=== PATIENT | male | born 1935 | race Caucasian/White ===

== ENCOUNTER → 2016-10-26 | Outpatient (CLI) | payer MEDICARE, BC ==
--- NOTE | 2016-10-26 11:24 | RADRPT ---
PROCEDURE: XR right knee. CLINICAL INDICATION: Knee pain TECHNIQUE: AP weightbearing, lateral weightbearing and sunrise views are available for review. COMPARISON: 10/28/2014 FINDINGS: There is moderate osteoarthrosis involving the medial tibial femoral compartment and mild osteoarthr osis involving the patellofemoral compartment. This is associated with joint space narrowing, subcho ndral sclerosis and osteophytosis. There is otherwise normal mineralization, architecture and alignment. No fractures are identified. No osseous lesions are identified. The soft tissues are unremarkable. IMPRESSION: Moderate osteoarthrosis involving the medial tibial femoral compartment and mild osteoarthrosis invo lving the patellofemoral compartment. RPTAT: HGDB .Ab Nice MD, MD Date Time Electronically viewed and signed by .Ab Nice MD, on 10/26/2016 11:24 .B/
--- NOTE | 2016-10-26 11:26 | RADRPT ---
PROCEDURE: XR pelvis/right hip. CLINICAL INDICATION: Hip pain TECHNIQUE: AP pelvis/lateral right hip view performed COMPARISON: No prior studies are available for comparison. FINDINGS: There is moderate to severe right hip osteoarthrosis and moderate left hip osteoarthrosis. This is a ssociated with joint space narrowing, subchondral sclerosis and osteophytosis. There is normal mine ralization. No fractures or osseous lesions are identified. The soft tissues are unremarkable. IMPRESSION: Moderate to severe right hip osteoarthrosis. Moderate left hip osteoarthrosis RPTAT: HGDB .Ab Nice MD, Date Time Electronically viewed and signed by .Ab Nice MD, on 10/26/2016 11:26 .B/
--- NOTE | 2016-10-27 03:54 | HKNOTE ---
DATE OF SERVICE: 10/26/2016 MAIN COMPLAINT: 1. Pain in the right hip. 2. Pain in the right knee. HISTORY OF MAIN COMPLAINT: The patient is an 81-year-old male who complains of pain in his right hi p and knee, all of which seem to have been present for about 3 months. He is quite well known to me . He has been diagnosed as having osteoarthritis of the right knee, and I have given him cortisone injections. The patient's sister has had bilateral hip and bilateral knee replacements all performe d by me. The patient saw his well testing operator, Dr. Gudino, yesterday. He was given a prescription for m eloxicam. He took 1 tablet last night, so he has not had sufficient time to evaluate its effectiven ess. The patient saw Dr. Martinez a month ago. Dr. Martinez informed him that all of his symptoms are coming from his right knee and that the right hip was normal, and Dr. Martienz gave him a cortisone injection into the right knee. This has not given him much relief. The patient's right hip pain i s localized to the groin and radiates down the anterior thigh. The patient's pain is aggravated by walking, weightbearing, and stair climbing. He does get rest pain and night pain. He had been taki ng Tylenol for the pain as well as Aleve. He does not have any symptoms of lower back disorder. He has no numbness or tingling in his legs. On a level surface, he cannot walk more than 10 to 14 pac es at a time without stopping. He limps all the time. He uses a cane most of the time (from his si ster). He has difficulty putting on his shoes and socks. PAST ORTHOPEDIC HISTORY: PREVIOUS ORTHOPEDIC OPERATIONS: None. PRIOR CORTISONE INTAKE: Dr. Martinez gave him a cortisone injection into the right knee last week. In reviewing my notes, I note that he has also been given cortisone injections into he right knee by me in the past. ALCOHOL INTAKE: "One 6-pack per month." OTHER JOINT PROBLEMS: None. BLOOD TESTS FOR ARTHRITIS: None. PRIOR INJURIES TO HIPS OR KNEES: None. WORK STATUS: The patient has had many careers. 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 PAST MEDICAL HISTORY: 1. Diabetes. 2. Hypertension. 3. Morbid obesity. 4. Depression. 5. Heart irregularity. 6. Prostatism. PAST SURGICAL HISTORY: 1. Gallbladder removed 5 years ago. 2. Heart valve surgery by Dr. Daniel 7 years ago. 3. Shoulder surgery 5 years ago. 4. Appendectomy as a child. ALLERGIES: NONE. MEDICATIONS: 1. Flomax 0.4 mg daily. 2. Alpha-Lipoic acid 300 mg daily. 3. Januvia 100 mg daily. 4. Metformin 500 mg daily. 5. Atorvastatin 20 mg daily. 6. Metoprolol 25 mg daily. 7. Calcium citrate 600 mg a day. 8. Mag Ox 400 mg twice a day. 9. Testosterone shot every 2 weeks. 10. Folic acid 1 mg daily. 11. Aspirin, low dose, 81 mg daily. 12. Allopurinol 300 mg daily. 13. Multivitamins. 14. Ferrous sulfate. 15. Clopidogrel to prevent strokes. FAMILY HISTORY: Noncontributory. SYSTEMS REVIEW: Prone to excess urination, difficulty with urination, excess night urination (curre ntly on Flomax), tingling sensations in his hands, otherwise entirely negative. HABITS: The patient does not smoke. He rarely drinks alcoholic beverages. MANAGEMENT LEAD: Dr. Tavares Gudino [address] [place] [address] PHYSICAL EXAMINATION GENERAL: The patient is a morbidly obese 81-year-old male. He moves around with a great deal of di fficulty on account of his weight and of his pain. He has a pink cane (! from his sister.) VITAL SIGNS: Height 5 feet 6 inches, weight 280 pounds. Blood pressure 155/70, temperature 98.1. GAIT: The patient's gait is markedly antalgic. It is very difficult for him to get onto the examin ation couch. RIGHT HIP: Flexion 120 degrees, external rotation contracture 25 degrees, internal rotation -25 deg [place], abduction 25, adduction 0 degrees. The patient gets marked pain in the right groin at all willard its of motion. No tenderness anywhere around the right hip. LEFT HIP: A full range of motion without pain. No tenderness anywhere around the hip. RIGHT KNEE: The right knee shows normal alignment. Active and passive extension is 0 degrees. Activ e and passive flexion is 135 degrees. The medial and lateral collateral ligaments and cruciate ligam ents are intact. Bess test is negative. There is no tenderness, scarring, or cysts. The patella t racks normally. There is no tenderness on the articular surface of the patella or in the patellar gr oove. The Q angle is normal. There is 4+ crepitus in the knee, none in the patella, 1+ effusion. LEFT KNEE: The left knee shows normal alignment. Active and passive extension is 0 degrees. Active and passive flexion is 135 degrees. The medial and lateral collateral ligaments and cruciate ligamen ts are intact. Bess test is negative. There is no effusion, tenderness, scarring, crepitus, or cy sts. The patella tracks normally. There is no tenderness on the articular surface of the patella or in the patellar groove. The Q angle is normal. IMAGING: Plain x-rays of the pelvis and right hip obtained today [2 views] show severe narrowing of the right hip joint space with almost complete loss of the joint space and dimu-mt-xsym contact, os teophyte formation, subchondral sclerosis, and intraosseous cyst formation. Imaging of the left hip obtained today was reviewed. These show a normal hip. CAT scan of the right hip obtained on 10/24/2016 at the [facility] is reported by Dr. Sukh cabrera as showing "mild to moderate hip osteoarthritis. No fracture. No avascular necrosis. Ossificati on in the right hip abductor muscles. 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 Extremely severe degenerative osteoarthritis of the right hip 2. Degenerative osteoarthritis of the right knee. 3. Morbid obesity. 4. Diabetes. 5. Hypertension. 6. Anxiety and depression. 7. Probable gout. MANAGEMENT: The patient is advised that he most certainly will need to have a right hip replacement sometime in the future. Given his BMI, he is going to have a hard time finding a surgeon who will be prepared to take him on as a surgical candidate. He was advised that he will need to lose at least 80 pounds before we could consider proceeding with surgery. The operation of total hip replacement is discussed with him and his sister in a great deal of nevaeh rangel FINAL DIAGNOSES: 1. Extremely severe degenerative osteoarthritis of the right hip 2. Degenerative osteoarthritis of the right knee. 3. Morbid obesity. 4. Diabetes. 5. Hypertension. 6. Anxiety and depression. 7. Probable gout. MANAGEMENT: 1. The patient will see Dr. Gudino to discuss the possibility of a gastric bypass type operation. 2. Under sterile conditions, given injection of 2 mL of Kenalog and 6 mL of 2% lidocaine into his r ight hip joint. This gave him immediate and complete relief of his right hip pain. 3. He was advised to discontinue the Meloxicam for a week or 2 until the effects of the cortisone c an wear off. 4. We can nurse him along with cortisone injections as needed, no more frequently than every 3 amanuel hs, until such time as he can bring his weight down to manage manageable levels. He is a very high risk patient given his weight, his age, and his medical conditions. DISCUSSION CONCERNING CAT SCAN REPORT: The patient has no symptoms to suggest that the neurovascula r bundle is in any way impacted by the lipoma reported. The degree of arthritis reported by Dr. Rainey appears to be much less significant than is noted on the x-rays. Given the severity of the arthritis on the plain hip x-rays I can only conclude that the CAT scan is not as reliable at diagnosing the changes of hip arthritis and can be ignored in terms of the sever ity described. Dictated By: SARAH THACKER/NATHALIA Conf#: [id number] DID#: [id number]
== END | disposition home or self-care (01) ==
LOC: HKI 10:01
DX: M25.551 Pain in right hip (principal); M25.561 Pain in right knee; M16.11 Unilateral primary osteoarthritis, right hip; M17.11 Unilateral primary osteoarthritis, right knee; E66.09 Other obesity due to excess calories; I10 Essential (primary) hypertension; E11.9 Type 2 diabetes mellitus without complications; F41.8 Other specified anxiety disorders
CPT/HCPCS: 20610; 73502; 73562; G0463